=== PATIENT | female | born 1960 | race Caucasian/White ===

== ENCOUNTER → 2025-01-19 07:55 | Outpatient (BNVA) | payer MEDICARE, BC, SELFPAY | PROVIDERS: Visit Provider Internal Medicine | DX: M81.0 Age-related osteoporosis without current pathological fracture (principal); N18.30 Chronic kidney disease, stage 3 unspecified; E55.9 Vitamin D deficiency, unspecified; M48.00 Spinal stenosis, site unspecified | CPT/HCPCS: 36415; 80053; 82306; 99204 ==